=== PATIENT | male | born 1950 | race Caucasian/White ===

== ENCOUNTER 2017-01-26 11:28 | Day surgery (SDC) | payer OTHER ==
[~2017-01-26] VITALS: Ht 172.7 cm; Wt 78.0 kg
[~2017-01-26 11:28] MED LIST: CIPRO DPS250 MG PO; COMPAZINE10 MG PO; MIRALAX PACKET17 GM PO; MS CONTIN DPS30 MG PO; OXY IR DPS5 MG PO; SENOKOT DPS8.6 MG PO; SURFAK DPS240 MG PO; TYLENOL DPS325 MG PO
== END 2017-01-26 15:25 | disposition home or self-care (01) ==
LOC: RAD.S 11:28 → EDSTATUS 13:00 → RAD.S 13:00
PROC: 0FPB3DZ Removal of Intraluminal Device from Hepatobiliary Duct, Percutaneous Approach (ICD-10-PCS; principal; 2017-01-26)
PROC: 0F753DZ Dilation of Right Hepatic Duct with Intraluminal Device, Percutaneous Approach (ICD-10-PCS; principal; 2017-01-26)
DX: Z46.59 Encounter for fitting and adjustment of other gastrointestinal appliance and device (principal); C25.9 Malignant neoplasm of pancreas, unspecified; K83.1 Obstruction of bile duct; Z98.890 Other specified postprocedural states